=== PATIENT | female | born 2000 | race Native Hawaiian/Other Pacific Islander ===

== ENCOUNTER 2021-01-25 15:58 | Emergency (ER) | payer OTHER, MEDICAID, SELFPAY ==
[2021-01-25 16:03] VITALS: BP 133/83; PULSE 119; RESP 28; TEMP 35.7; O2SAT 100; BMI 20.3
[2021-01-25] MEDS: ONDANSETRON 4 MG/2 ML INJ IV (17:21)
[2021-01-25] MEDS: SODIUM CHLORIDE 0.9% 1,000 ML 1000 ML IV (17:21)
[2021-01-25 17:45] LABS: Add Manual Diff / Slide Review NO; Basophils Absolute Auto 100 /uL (0-100); Basophils Percent Auto 0.5 % (0-2); Eosinophils Absolute Auto 0 /uL (0-450); Eosinophils Percent Auto 0.3 % (2-4); Hematocrit 41.6 % (36-46); Hemoglobin 14.2 g/dL (12.0-16.0); Lymphocytes Absolute Auto 2300 /uL (1100-4500); Lymphocytes Percent Auto 20.4 % (25-40); Mean Corpuscular HGB Conc 34.2 % (30-36); Mean Corpuscular Volume 90.7 fL (80-100); Monocytes Absolute Auto 500 /uL (0-900); Monocytes Percent Auto 4.9 % (3-14); Neutrophils Absolute Auto 8200 /uL (1500-7000); Neutrophils Percent Auto 73.9 % (50-75); Platelet Count 293 X10^3/uL (150-400); Red Blood Cell Count 4.59 X10^6/uL (4.0-5.2); Red Cell Distribution Width 12.7 % (11.6-14.8); White Blood Cell Count 11.1 X10^3/uL (4.5-11.0)
[2021-01-25 17:51] LABS: Alanine Aminotransferase 23 IU/L (<35); Albumin 4.7 g/dL (3.5-5.0); Albumin Globulin Ratio 1.6 (1.0-2.8); Alkaline Phosphatase 56 U/L (38-126); Aspartate Aminotransferase 34 IU/L (14-36); BUN Creatinine Ratio 13.1 (6-22); Bilirubin Total 1.6 mg/dL (0.2-1.3); Blood Urea Nitrogen 8 mg/dL (7-17); Carbon Dioxide 17 mmol/L (22-32); Chloride 106 mmol/L (98-107); Estimated Glomerular Filt Rate > 60.0 mL/min (>60); Glucose 87 mg/dL (70-100); HEMOLYSIS < 15 (0-50); Potassium 3.7 mmol/L (3.4-5.1); Sodium 137 mmol/L (137-145); Total Protein 7.7 g/dL (6.3-8.2)
[2021-01-25 17:52] LABS: Ketones (Beta-Hydroxybutyrate) 0.85 mmol/L (<0.27)
[2021-01-25 17:56] VITALS: BP 110/56; PULSE 66; RESP 19; O2SAT 100
--- NOTE | 2021-01-25 18:02 | ED_ITS ---
HPI - Abdominal Pain General Chief Complaint: Abdominal Pain Stated Complaint: JUST FOUND OUT NOT WELL Time Seen by Provider: 01/25/21 16:10 Mode of arrival: Wheelchair History of Present Illness HPI narrative: 20-year-old female nonsmoker is a at about 4 weeks, last period was about a month ago. She just took a urine test at home and found out she is and nearly immediately started having nausea, vomiting and felt anxious. She is not dizzy or lightheaded. She is having no chest pain or shortness of breath. She has had no fever or chills. She denies any vaginal bleeding or discharge Related Data Previous Rx's Medication Instructions Recorded ondansetron 4 mg disintegrating 4 mg PO TID-QID PRN #10 tab 01/25/21 tablet Allergies Allergy/AdvReac Type Severity Reaction Status Date / Time No Known Drug Allergies Allergy Verified 01/25/21 16:07 Review of Systems Review of Systems Narrative: GENERAL: See HPI HEENT: Denies sinus pain, ear pain, sore throat, difficulty swallowing, dizziness. RESPIRATORY: Denies dyspnea, cough, wheezing, hemoptysis, sputum. CARDIOVASCULAR: Denies chest pain, palpitations, orthopnea, edema, GASTROINTESTINAL: Denies nausea, vomiting, abdominal pain, diarrhea, constipation, melena. : Denies dysuria, frequency, incontinence, hematuria, urinary retention. MUSCULOSKELETAL: denies weakness, joint pain, or bony pain SKIN: Denies rash, skin lesions, or other NEUROLOGIC: Denies weakness, headache, numbness, change in speech, confusion, seizures, incoordination. PSYCHIATRIC: No concerning psychosocial issues. 12 point review of systems is negative except for those stated above Patient History Substance Use Type: does not use Exam Narrative Exam Narrative: GENERAL: [20] year old patient appears stated age. Well- developed patient, in mild distress. HEAD: Atraumatic. Normocephalic. EYES: Pupils equal round and reactive. Extraocular motions intact. No scleral icterus. No injection or drainage. ENT: Nose without bleeding, purulent drainage. Throat without erythema, tonsillar hypertrophy or exudate. Airway patent. NECK: Trachea midline. Non tender CARDIOVASCULAR: Regular rate and rhythm without murmurs, gallops, or rubs. RESPIRATORY: Clear to auscultation. Breath sounds equal bilaterally. No wheezes, rales, or rhonchi. GASTROINTESTINAL: Abdomen soft, non-tender, nondistended. EXTREMITIES: No edema or joint tenderness. BACK: Nontender without deformity or crepitance. No flank tenderness. NEURO: AOx3. SKIN: No rash or erythema of visible areas Initial Vital Signs Initial Vital Signs: Vital Signs Temperature 96.3 F L 01/25/21 16:03 Pulse Rate 119 H 01/25/21 16:03 Respiratory Rate 28 H 01/25/21 16:03 Blood Pressure 133/83 01/25/21 16:03 Pulse Oximetry 100 01/25/21 16:03 Course Orders Ordered: ED Orders 01/25/21 16:38 Complete Blood Count AUTO DIFF Stat Comprehensive Metabolic Panel Stat Ketones (Beta-Hydroxybutyrate) Stat Discontinued Medications Sodium Chloride (Normal Saline 0.9%) 1,000 mls @ 1,000 mls/hr IV BOLUS ONE Stop: 01/25/21 18:04 Last Infusion: 01/25/21 18:20 Dose: 0 mls/hr Documented by: Admin: 01/25/21 17:21 Dose: 1,000 mls/hr Documented by: BIB Ondansetron HCl (Ondansetron 4 Mg/2 Ml Inj) 4 mg IV NOW ONE Stop: 01/25/21 17:06 Last Admin: 01/25/21 17:21 Dose: 4 mg Documented by: BIB Reevaluation(s) Reevaluation #1: Patient feels a near complete resolution of symptoms, vital signs have normalized, she has no orthostatic symptoms. Vital Signs Vital signs: Vital Signs - 8 hr 01/25/21 16:03 01/25/21 17:56 Temperature 96.3 F L Pulse Rate 119 H 66 Respiratory Rate 28 H 19 Blood Pressure 133/83 110/56 L Pulse Oximetry 100 100 MDM - Abdominal Pain Lab Data Result diagrams: 01/25/21 16:38 01/25/21 16:38 Labs: Lab Results 01/25/21 01/25/21 01/25/21 Range/Units 16:38 16:38 16:38 WBC 11.1 H (4.5-11.0) X10^3/uL RBC 4.59 (4.0-5.2) X10^6/uL Hgb 14.2 (12.0-16.0) g/dL Hct 41.6 (36-46) % MCV 90.7 (80-100) fL MCH 31.0 (26-34) PG MCHC 34.2 (30-36) % RDW 12.7 (11.6-14.8) % Plt Count 293 (150-400) X10^3/uL Neut % (Auto) 73.9 (50-75) % Lymph % (Auto) 20.4 L (25-40) % [place] % (Auto) 4.9 (3-14) % Eos % (Auto) 0.3 L (2-4) % Baso % (Auto) 0.5 (0-2) % Neut # (Auto) 8200 H (4590-4846) /uL Lymph # (Auto) 2300 (8809-4665) /uL [place] # (Auto) 500 (0-900) /uL Eos # (Auto) 0 (0-450) /uL Baso # (Auto) 100 (0-100) /uL Sodium 137 (137-145) mmol/L Potassium 3.7 (3.4-5.1) mmol/L Chloride 106 (98-107) mmol/L Carbon Dioxide 17 L (22-32) mmol/L BUN 8 (7-17) mg/dL Creatinine 0.61 (0.52-1.04) mg/dL Estimated GFR > 60.0 (>60) mL/min BUN/Creatinine Ratio 13.1 (6-22) Glucose 87 (70-100) mg/dL Calcium 10.0 (8.4-10.2) mg/dL Total Bilirubin 1.6 H (0.2-1.3) mg/dL AST 34 (14-36) IU/L ALT 23 (<35) IU/L Alkaline Phosphatase 56 (38-126) U/L Total Protein 7.7 (6.3-8.2) g/dL Albumin 4.7 (3.5-5.0) g/dL Globulin 3.0 (1.7-4.1) g/dL Albumin/Globulin Ratio 1.6 (1.0-2.8) Ketones 0.85 H (<0.27) mmol/L Point of care testing: Point of Care Testing Test Results Positive Glucose POC 80 Urine Dip Bedside Urine Glucose Negative Bedside Urine Bilirubin - Negative Bedside Urine Ketone +++ 80 Urine Specific [place] 1.015 Bedside Urine Occult Blood - Negative Bedside Urine pH 7.0 Bedside Urine Protein - Negative Bedside Urine Urobilinogen - Negative Bedside Urine Nitrite - Negative Bedside Urine Leukocytes - Negative Esterase MDM Narrative Medical decision making narrative: Patient with very reassuring physical exam, history and labs. She has tremendous improvement with IV fluids. She has been given return precautions, a prescription for an antiemetic and questions answered to her apparent satisfaction Discharge Plan Departure Patient Disposition: Home Clinical Impression: Vomiting affecting Instructions: Hyperemesis Gravidarum Activity Restrictions/Additional Instructions: *You have been diagnosed with [nausea and vomiting in ] *What to do: *Please continue to take your regular medications as directed. [ ] New medication prescriptions sent to your pharmacy: [ ] [x] New medication written as a paper prescription [ ] No new medications given *Please follow up with your primary care provider in 2-3 days, call for an appointment. Let them know you were seen in the Emergency Department and that we ask that you be seen in follow up. We will electronically transmit a record of today's note if your PCP is in our system *If you do not have a primary care provider please contact the [facility] Resource line at [phone]. They will ask some questions about your medical history and help get you set up with a doctor in the community. *Return to Emergency Department if you should have any new, worsening or concerning symptoms, such as [fever greater than 101 F, shaking chills, worsening pain, persistent vomiting or other bothersome symptoms] Prescriptions: New ondansetron 4 mg tablet,disintegrating 4 mg PO TID-QID PRN (Reason: nausea and vomiting) Qty: 10 RF: 0
== END 2021-01-25 18:21 | disposition home or self-care (01) ==
PROVIDERS: Emergency Provider Emergency Medicine
DX: O21.9 Vomiting of pregnancy, unspecified (principal); Z3A.01 Less than 8 weeks gestation of pregnancy
CPT/HCPCS: 80053; 81003; 81025; 82009; 82962; 85025; 96361; 96374; 99283; 99284; J2405